=== PATIENT | male | born 1970 | race Hispanic/Latino ===

== ENCOUNTER 2019-11-18 09:33 | Emergency (ER) | payer SELFPAY ==
[~2019-11-18] VITALS: Ht 182.9 cm; Wt 90.7 kg
--- OUTSIDE RECORDS SUMMARY | 2019-11-18 09:37 | XMS REPORT | Clinical Summary ---
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 9 Active HYDROcodone-acetaminophen Take 1 tablet 120 tablet 0 (NORCO) 10-325 mg by mouth 4 0 tabletIndications: times daily. Chronic pain syndrome Active TRUVADA 200-300 mg per Take 1 tablet 30 tablet 2 0 tabletIndications: Human by mouth 0 immunodeficiency virus daily. (HIV) disease Active atazanavir (REYATAZ) 300 Take 1 30 capsule 2 0 mg capsuleIndications: capsule by 0 Human immunodeficiency mouth daily virus (HIV) disease (with breakfast). Active NORVIR 100 mg Take 1 tablet 30 tablet 2 TabIndications: Human by mouth 0 immunodeficiency virus daily. (HIV) disease 02/16/2019 Discontinued (Other) albuterol (VENTOLIN Inhale 2 3 Month 1 HFA,PROVENTIL HFA,PROAIR Puffs by Supply 8 HFA) 90 mcg/actuation mouth 4 times inhalerIndications: Mild daily as intermittent asthma needed for without complication Wheezing. 01/04/2019 Discontinued (Reorder) TRUVADA 200-300 mg per Take 1 tablet 30 tablet 6 0 tabletIndications: Human by mouth 8 immunodeficiency virus daily. (HIV) disease 01/05/2019 Discontinued (Reorder) NORVIR 100 mg Take 1 tablet 30 tablet 6 TabIndications: Human by mouth 8 immunodeficiency virus daily. (HIV) disease 12/07/2018 atazanavir (REYATAZ) 300 Take 1 30 capsule 6 0 201 mg capsuleIndications: capsule by 8 Human immunodeficiency mouth daily virus (HIV) disease (with breakfast). 11/25/2018 Discontinued (Reorder) HYDROcodone-acetaminophen Take 1 tablet 120 tablet 0 (NORCO) 10-325 mg by mouth 4 9 tabletIndications: times daily. Chronic pain syndrome 12/29/2018 Discontinued (Reorder) HYDROcodone-acetaminophen Take 1 tablet 120 tablet 0 (NORCO) 10-325 mg by mouth 4 9 tabletIndications: times daily. Chronic pain syndrome 01/26/2019 Discontinued (Reorder) HYDROcodone-acetaminophen Take 1 tablet 120 tablet 0 (NORCO) 10-325 mg by mouth 4 9 tabletIndications: times daily. Chronic pain syndrome 01/31/2019 Discontinued (Reorder) TRUVADA 200-300 mg per TAKE 1 TABLET 30 tablet 6 0 tabletIndications: Human BY MOUTH 9 immunodeficiency virus EVERY DAY (HIV) disease 02/16/2019 Discontinued (Other) RITONavir (NORVIR) 100 mg Take 1 tablet 30 tablet 3 TabIndications: Human by mouth 9 immunodeficiency virus daily. (HIV) disease 01/31/2019 Discontinued (Reorder) atazanavir (REYATAZ) 300 Take 1 30 capsule 3 0 mg capsuleIndications: capsule by 9 Human immunodeficiency mouth daily virus (HIV) disease (with breakfast). 01/31/2019 Discontinued (Reorder) NORVIR 100 mg TAKE 1 TABLET 30 tablet 6 TabIndications: Human BY MOUTH 9 immunodeficiency virus EVERY DAY (HIV) disease 02/16/2019 Discontinued (Reorder) HYDROcodone-acetaminophen Take 1 tablet 120 tablet 0 (NORCO) 10-325 mg by mouth 4 9 tabletIndications: times daily. 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 (HIV) disease 08/08/2019 Discontinued (Reorder) TRUVADA 200-300 mg per Take 1 tablet 30 tablet 6 0 tabletIndications: Human by mouth 9 immunodeficiency virus daily. (HIV) disease 08/08/2019 Discontinued (Reorder) atazanavir (REYATAZ) 300 Take 1 30 capsule 3 0 mg capsuleIndications: capsule by 9 Human immunodeficiency mouth daily virus (HIV) disease (with breakfast). 03/23/2019 Discontinued (Reorder) HYDROcodone-acetaminophen Take 1 tablet 120 tablet 0 (NORCO) 10-325 mg by mouth 4 9 tabletIndications: times daily. Chronic pain syndrome 04/27/2019 Discontinued (Reorder) HYDROcodone-acetaminophen Take 1 tablet 120 tablet 0 (NORCO) 10-325 mg by mouth 4 9 tabletIndications: times daily. Chronic pain syndrome 06/09/2019 Discontinued (Reorder) HYDROcodone-acetaminophen Take 1 tablet 120 tablet 0 (NORCO) 10-325 mg by mouth 4 9 tabletIndications: times daily. Chronic pain syndrome 07/06/2019 Discontinued (Reorder) HYDROcodone-acetaminophen Take 1 tablet 120 tablet 0 (NORCO) 10-325 mg by mouth 4 9 tabletIndications: times daily. Chronic pain syndrome 08/08/2019 Discontinued (Reorder) HYDROcodone-acetaminophen Take 1 tablet 120 tablet 0 (NORCO) 10-325 mg by mouth 4 0 tabletIndications: times daily. Chronic pain syndrome 10/17/2019 Discontinued (Reorder) NORVIR 100 mg Take 1 tablet 30 tablet 6 TabIndications: Human by mouth 0 immunodeficiency virus daily. (HIV) disease 10/17/2019 Discontinued (Reorder) TRUVADA 200-300 mg per Take 1 tablet 30 tablet 6 0 tabletIndications: Human by mouth 0 immunodeficiency virus daily. (HIV) disease 10/17/2019 Discontinued (Reorder) atazanavir (REYATAZ) 300 Take 1 30 capsule 3 0 mg capsuleIndications: capsule by 0 Human immunodeficiency mouth daily virus (HIV) disease (with breakfast). 08/15/2019 Discontinued HYDROcodone-acetaminophen Take 1 tablet 120 tablet 0 (NORCO) 10-325 mg by mouth 4 0 tabletIndications: times daily. Chronic pain syndrome 09/05/2019 Discontinued HYDROcodone-acetaminophen Take 1 tablet 120 tablet 0 (NORCO) 10-325 mg by mouth 4 0 tabletIndications: times daily. Chronic pain syndrome 10/17/2019 Discontinued (Reorder) HYDROcodone-acetaminophen Take 1 tablet 120 tablet 0 (NORCO) 10-325 mg by mouth 4 0 tabletIndications: times daily. Chronic pain syndrome 10/17/2019 Discontinued (Reorder) NORVIR 100 mg Take 1 tablet 30 tablet 3 TabIndications: Human by mouth 0 immunodeficiency virus daily. (HIV) disease 10/19/2019 Discontinued (Reorder) TRUVADA 200-300 mg per Take 1 tablet 30 tablet 3 0 tabletIndications: Human by mouth 0 immunodeficiency virus daily. (HIV) disease 10/19/2019 Discontinued (Reorder) atazanavir (REYATAZ) 300 Take 1 30 capsule 3 0 mg capsuleIndications: capsule by 0 Human immunodeficiency mouth daily virus (HIV) disease (with breakfast). 10/19/2019 Discontinued (Reorder) NORVIR 100 mg Take 1 tablet 30 tablet 3 TabIndications: Human by mouth 0 immunodeficiency virus daily. (HIV) disease Active Problems Patient Care Coordination Note 11/17/[address] Estella Veliz MD [facility] Problem Noted Date History of hepatitis C 12/17/2018 Overview: Received 12 weeks Harvoni. SVR 12 conf irmed 11/07. Pre-treatment fibrosis F3, so continued HCC screening recommen ded. Pain management contract agreement 08/09/2018 Shingles 04/14/2017 Cirrhosis 08/14/2014 Overview: By ultrasound 11/02 and low platelets. Alcohol abuse 02/13/2014 Human immunodeficiency virus (HIV) disease 3 Kyphosis 06/30/2008 Allergy to pollen 06/30/2008 Peripheral Neuropathy 06/30/2008 Asthma Heart murmur Cocaine abuse Tobacco abuse Resolved Problems Problem Noted Date Resolved Date Chronic hepatitis C without hepatic coma 03/12/2015 12/17/2018 Encounters Care Team Description Date Type Specialty Monique Jackmane R, [facility] Chronic, continuous use of opioids; Pain management contract agreement 11/18/2019 Orders Only Monique Jackmane R, [facility] Chronic, continuous use of opioids 11/04/2019 Orders Only Infectious Diseases Monique Jackmane R, [facility] Chronic, continuous use of opioids; Pain management contract agreement 10/21/2019 Orders Only Veronica Jackman, [facility] Human immunodeficiency virus (HIV) disea se 10/19/2019 Refill Marlene Nobles 10/18/2019 Clinical Case Social Work Mgt Nakul Gomez MD Human immunodeficiency virus (HIV) disea se 10/17/2019 Orders Only Infectious Diseases Nakul Gomez MD Human immunodeficiency virus (HIV) disea se 10/17/2019 Orders Only Infectious Diseases Nakul Gomez MD Chronic pain syndrome 10/17/2019 Orders Only Infectious Diseases Veronica Jackman NP Chronic, continuous use of opioids 10/07/2019 Orders Only Infectious Diseases Veronica Jackman NP Chronic, continuous use of opioids; Pain management contract agreement 09/23/2019 Orders Only Kenny Veliz MD Chronic, continuous use of opioids 09/16/2019 Orders Only Physical Medicine a nd Rehab Veronica Jackman NP Chronic, continuous use of opioids 09/09/2019 Orders Only Infectious Diseases Nkaul Gomez MD Chronic pain syndrome 09/05/2019 Refill Infectious Diseases Monique Jackmane R [facility] Chronic, continuous use of opioids; Pain management contract agreement 08/26/2019 Orders Only Kenny Veliz MD Chronic, continuous use of opioids 08/19/2019 Orders Only Physical Medicine [facility] Re[facility] Evan Rikcetts RN Chronic pain syndrome 08/15/2019 Refill Infectious Diseases Veronica Jackman [facility] Chronic, continuous use of opioids 08/12/2019 Orders Only Infectious Diseases Nakul Gomez MD Screen for STD (sexually transmitted dis ease) (Primary Dx); Human immunodeficiency virus (HIV) disease; Chronic pain syndrome; Scrofulous tuberculous abscess; Screening for tuberculosis; Need for pneumococcal vaccination 08/08/2019 Office Visit Infectious Diseases Evan Ricketts RN Chronic pain syndrome 08/08/2019 Refill Infectious Diseases Veronica Jackman NP Chronic, continuous use of opioids; Pain management contract agreement 07/29/2019 Orders Only Kenny Veliz MD Chronic, continuous use of opioids 07/22/2019 Orders Only Physical Medicine [facility] Rehab Veronica Jackman NP Chronic, continuous use of opioids 07/15/2019 Orders Only Infectious Diseases Nakul Gomez MD Chronic pain syndrome 07/06/2019 Refill Infectious Diseases Nakul Gomez MD Chronic pain syndrome 07/01/2019 Orders Only Infectious Diseases Veronica Jackman NP Chronic, continuous use of opioids; Pain management contract agreement 07/01/2019 Orders Only Kenny Veliz MD Chronic pain syndrome (Primary Dx) 06/29/2019 Office Visit Physical Medicine a nd Rehab Kenny Veliz MD Chronic, continuous use of opioids 06/24/2019 Orders Only Physical Medicine a nd Rehab Veronica Jackman NP Chronic, continuous use of opioids 06/17/2019 Orders Only Infectious Kenny Vogel MD Chronic pain syndrome 06/09/2019 Orders Only Physical Medicine a [facility] Rehab Veronica Jackman NP Chronic, continuous use of opioids (Prim sher Dx); Pain management contract agreement 06/09/2019 Orders Only Kenny Veliz MD Chronic, continuous use of opioids 05/27/2019 Orders Only Physical Medicine a nd Rehab Veronica Jackman NP Chronic, continuous use of opioids 05/20/2019 Orders Only Infectious Kenny Vogel MD Chronic, continuous use of opioids (Prim sher Dx); Pain management contract agreement 05/12/2019 Orders Only Physical Medicine a nd Rehab Kenny Veliz MD Chronic, continuous use of opioids 04/29/2019 Orders Only Physical Medicine a [facility] Rehab Kenny Veliz MD Chronic, continuous use of opioids (Prim sher Dx); Chronic pain syndrome 04/27/2019 Orders Only Physical Medicine a nd Rehab Veronica Jackman NP Chronic, continuous use of opioids 04/22/2019 Orders Only Infectious Diseases Kenny Veliz MD Chronic, continuous use of opioids 04/01/2019 Orders Only Physical Medicine a nd Rehab Veronica Jackman NP Chronic, continuous use of opioids (Prim sher Dx) 03/31/2019 Orders Only Infectious Diseases Rosenda Puga MD Current severe episode of major depressi ve disorder with psychotic features without prior episode; Insomnia, unspecified type; Other mixed anxiety disorders; H/O: substance abuse 03/24/2019 Refill Psychiatry Kenny Veliz MD Chronic pain syndrome 03/23/2019 Orders Only Physical [facility] Re[facility] Kenny Veliz MD Chronic, continuous use of opioids 03/04/2019 Orders Only Physical [facility] Re[facility] Kenny Veliz MD Chronic pain syndrome 02/16/2019 Office Visit Physical Medicine a [facility] Rehab Kenny Veliz MD Chronic, continuous use of opioids 02/04/2019 Orders Only Physical Medicine a [facility] Rehab Nakul Gomez MD Chronic active hepatitis C (Primary Dx); Human immunodeficiency virus (HIV) disease; Need for pneumococcal vaccination 01/31/2019 Office Visit Infectious Diseases Rosenda Puga MD Current severe episode of major depressi ve disorder with psychotic features without prior episode (Primary Dx); Insomnia, unspecified type; Other mixed anxiety disorders; H/O: substance abuse; Nicotine use disorder; Pain disorder 01/31/2019 Office Visit Psychiatry Kenny Veliz MD Chronic pain syndrome 01/26/2019 Refill Physical Medicine a [facility] Re[facility] Kenny Veliz MD Chronic, continuous use of opioids 01/07/2019 Orders Only Physical Medicine a [facility] Rehab Nakul oGmez MD Human immunodeficiency virus (HIV) disea se 01/05/2019 Refill Infectious Diseases Nakul Gomez MD Human immunodeficiency virus (HIV) disea se (Primary Dx) 01/05/2019 Orders Only Infectious Diseases Nakul Gomez MD Human immunodeficiency virus (HIV) disea se 01/04/2019 Refill Infectious Diseases Kenny Veliz MD Chronic pain syndrome 12/29/2018 Refill Physical Medicine [facility] Rehab Kenny Veliz MD Chronic, continuous use of opioids 12/10/2018 Orders Only Physical Medicine a [facility] Rehab Gia De La Torre RN 12/03/2018 Refill Infectious Diseases Veronica Jackman NP Chronic pain syndrome 11/25/2018 Refill Kenny Veliz MD Chronic prescription opiate use 11/19/2018 Orders Only Physical [facility] Rehab after 11/17/2018 Immunizations Name Administration Dates Next Due Influenza A (H1N1) Vac 2010, 05/11/2009 05/11/2010 Injection Influenza Vaccine 04/21/2014, 07/04/2013, 06/01/2012, 02/2009, 03/22/2010 05/01/2008, 05/25/2007 Influenza Vaccine, 04/14/2017 Seasonal, Injectable Methylpredinsone Inj 03/21/2013 PCV 13 (Pnuemococcal 12/07/2017 Conjugated 13 Valent) PPD 12/07/2017 (Deferred: Patient Refused - Unable to 03/22/2010 return for PPD Reading), 2010, , 04/13/2009 PPV 23 (Pneumococcal 08/08/2019 Polysaccharide 23 Valent) Pneumoccoccal 04/13/2009 04/13/2010 Tdap Tetanus, diphtheria, 09/19/2011 acellular pertussis Vaccine Vitamin B12 03/30/2009, 07/06/2008 Cyanocobalamin 1000mcg Inj Family History Medical History Relation Name Comments Stroke Brother Asthma Daughter Hypertension Daughter Diabetes Maternal Grandmother Arthritis Mother Relation Name Status Comments Brother Alive Brother Alive Brother Daughter Alive Daughter Alive Daughter Daughter Father Alive Maternal Grandfather Maternal Grandmother Mother Alive Paternal Grandfather Paternal Grandmother Sister Alive Sister Alive Son Alive Social History Date Tobacco Use Types Packs/Day Years Used Current Every Day Smoker Cigarettes 0.5 20 Smokeless Tobacco: Current User Tobacco Cessation: Ready to Quit: Yes; C ounseling Given: No Comments: quit in 2006, restarted early 2011 Drinks/Week oz/Week Comments Alcohol Use Yes Food Insecurity Answer Date Recorded Within the past 12 months, you worried that your Never francisco e 08/19/2018 food would run out before you got money to buy more. Within the past 12 months, the food you bought Never true 08/19/2018 just didn't last and you didn't have mo teodoro to get more. Sex Assigned at Date Recorded Not on file Industry Job Start Date Occupation Not on file Not on file Not on file Travel End Travel History Travel Start No recent travel history available. Last Filed Vital Signs Reading Time Taken Comments Vital Sign 129/76 08/08/2019 8:56 AM [facility] Blood Pressure 80 08/08/2019 8:56 AM [facility] Pulse 37.1 C (98.7 F) 08/08/2019 8:56 AM [employer]IC TREATER Temperature 20 08/08/2019 8:56 AM ANODIC TREATER Respiratory Rate - - Oxygen Saturation - - Inhaled Oxygen Concentration 88 kg (194 lb) 08/08/2019 8:56 AM [facility]IC TREATER Weight 182.9 cm (6') 08/08/2019 8:56 AM [employer] TRE[facility] Height 26.31 08/08/2019 8:56 AM [facility]IC TRE[facility] Body Mass Index Plan of Treatment Care Team Description Date Type Specialty 12/05/2019 Lab Appointment Lab Tiarra Ortiz MD [address] [place] [address] [phone] 12/15/2019 Office Visit Infectious Diseases Health Maintenance Due Date Last Done Comments Colorectal Cancer Scrn 10/01/2019 Annual (FIT/FOBT) Age 50 to 75 IMM Influenza Seasonal 03/22/2020 04/14/2017 Oct to August (>/= 19 yrs) Procedures Comments Procedure Name Priority Date/Time Associated Diag nosis COMPREHENSIVE METABOLIC Routine 07/25/2019 Human immunodeficiency PANEL 4:22 PM [facility] virus (HIV) disease HIV RNA VIRAL LOAD Routine 07/25/2019 Human immun odeficiency 4:22 PM [employer] virus (HIV) disease CBC (WITHOUT Routine 07/25/2019 Human immunodef iciency DIFFERENTIAL) 4:22 PM [employer] virus (HIV) disease URINE DRUG SCREEN Routine 07/25/2019 Chronic, con tinuous use 4:22 PM AN[facility]IC TREATER of opioids URINE DRUG SCREEN Routine 06/29/2019 Chronic, con tinuous use 3:41 PM [employer] TREATER of opioids URINE DRUG SCREEN Routine 05/12/2019 Chronic, con tinuous use 3:47 PM [employer] TREATER of opioids BILIRUBIN, DIRECT Routine 02/16/2019 Human immuno deficiency 2:45 PM CDT virus (HIV) disease CBC Routine 02/16/2019 Human immunodef iciency 2:45 PM CDT virus (HIV) disease SYPHILIS MONITOR FOR Routine 02/16/2019 Human imm unodeficiency TREATMENT 2:45 PM CDT virus (HIV) disease HIV RNA VIRAL LOAD Routine 02/16/2019 Human immun odeficiency 2:45 PM CDT virus (HIV) disease COMPREHENSIVE METABOLIC Routine 02/16/2019 Human immunodeficiency PANEL 2:45 PM CDT virus (HIV) disease CD4/CD8 RATIO GRP Routine 02/16/2019 Human immuno deficiency 2:45 PM CDT virus (HIV) disease CBC/DIFF Routine 02/16/2019 Human immunodef iciency 2:45 PM CDT virus (HIV) disease URINE DRUG SCREEN Routine 02/16/2019 Chronic, con tinuous use 2:33 PM CDT of opioids URINALYSIS Routine 02/16/2019 Human immunodef iciency 2:25 PM CDT virus (HIV) disease URINALYSIS Routine 02/16/2019 Human immunodef iciency 2:25 PM CDT virus (HIV) disease URINE DRUG SCREEN Routine 01/28/2019 Chronic, con tinuous use 12:36 PM CDT of opioids URINE DRUG SCREEN Routine 11/18/2018 Chronic pres cription 1:38 PM CDT opiate use HCV RNA QUANT, PCR Routine 11/18/2018 Chronic hep atitis C 1:37 PM CDT without hepatic coma after 11/17/2018 Results * Comprehensive Metabolic Panel (07/25/2019 4:22 PM [facility]) Only the most recent of 2 results within the time period is included. Sodium 146 (H) 136 - 145 mmol/L [facility] Potassium 4.3 3.5 - 5.1 mmol/L [facility] Chloride 107 98 - 107 mmol/L [facility] CO2 28 21 - 31 mmol/L [facility] Glucose 112 (H) 70 - 110 mg/dL [facility] Calcium 9.1 8.6 - 10.3 mg/dL [facility] Urea Nitrogen 13.0 7.0 - 25.0 mg/dL [facility] Creatinine 1.0 0.7 - 1.3 mg/dL [facility] Alkaline 91 34 - 104 U/L [facility] Phosphatase [facility] ALT 12 7 - 52 U/L [facility] AST 19 13 - 39 U/L [facility] Bilirubin, 0.9 0.2 - 1.2 mg/dL [facility] Total [facility] Total Protein 6.7 6.0 - 8.3 g/dL [facility] GFR, Estimated 79 (L) >=90 mL/min/1.73 m2 [facility] Albumin 4.3 4.2 - 5.5 g/dL [facility] Anion Gap 11 5 - 16 mmol/L [facility] Specimen Blood Performing Organization Address [facility] [place] one Number [facility] [address] [place] [address] * DRUG SCREEN, URINE (07/25/2019 4:22 PM [facility]ODIC TREATER) Only the most recent of 6 results within the time period is included. Opiate, Ur Positive (A) Negative [facility] Comment: [facility] Calibrated Standard: Morphine Positive if urine level > or = 300 ng/dL Amphetamine Negative Negative [facility] Comment: [facility] Calibrated Standard: D-Methamphetamine Positive if urine level > or = 1000 ng/mL Barbiturate Negative Negative [facility] Comment: [facility] Calibrated Standard: Secobarbital Positive if urine level is > or = 200 ng/mL Benzodiazepine Negative Negative [facility] Comment: [facility] Calibrated Standard: Lormethazepam Positive if urine level is > or = 200 ng/mL Cocaine Negative Negative [facility] Comment: [facility] Calibrated Standard: Benzoylecgonine Positive if urine level > or = 300 ng/dL PCP Negative Negative [facility] Comment: [facility] Calibrated Standard: Phencyclidine Positive if urine level > or = 25 ng/dL Cannabinoid Negative Negative [facility] Comment: [facility] Calibrated Standard: 11 nor-delta(9)-THC carboxylic acid Positive if urine level > or = 50 ng/mL Specimen Urine Performing Organization Address [facility] one Number [facility] [address] [place] [address] * HIV-1 RNA (07/25/2019 4:22 PM [facility]ODIC TREATER) Only the most recent of 2 results within the time period is included. [facility] HIV-1 RNA Detected (A) Not detected [facility] Detection [facility] HIV-1 RNA <20 (H) <=0 copies/mL [facility] Copies [facility] HIV-1 RNA Log10 <1.30 (H) <=0.00 Log10 [facility] Specimen Blood Narrative Performed At This test utilizes FDA cleared KARINA Am pliPrep/KARINA TaqMan HIV-[address] test [address] [facility] which allo ws quantitation of viral loads between 20 and 10,000,000 copies/mL of plasma. Whe n the result is positive but less than 20 copies/mL of HIV-1 RNA, the test result will be reported as detected but less than 20 copies/mL". The KARINA AmpliPrep / KARINA TaqManHIV-1 test, version 2.0 is not intended for use as a screening melissa t for the presence of HIV-1 RNA in blood or a diagnostic test to confirm the pre sence of HIV infection. This test is intended for use as an aid in the manag ement of patients with HIV-1 infection. Performing Organization Address [facility] one Number [facility] [address] [place] [address] [phone] * CBC (without differential) (07/25/2019 4:22 PM ANODIC TREATER) [facility] WBC 6.9 4.5 - 12.0 K/uL [facility] RBC 4.52 (L) 4.60 - 6.20 M/uL [facility] Hemoglobin 13.7 (L) 14.0 - 18.0 g/dL [facility] Hematocrit 42.8 40.0 - 54.0 % [facility] MCV 94.7 (H) 82.0 - 92.0 fL [facility] MCH 30.3 27.0 - 31.0 pg [facility] MCHC 32.0 32.0 - 36.0 g/dL [facility] RDW 48.3 (H) 35.1 - 43.9 fL [facility] Platelet 144 (L) 150 - 400 K/uL [facility] Mean Platelet 12.7 (H) 9.4 - 12.4 fL [facility] Volume [facility] Percent NRBC 0.0 % [facility] Specimen Blood Performing Organization Address City/State/Zipcode Ph one Number [facility] [address] [place] [address] * CBC/Diff (02/16/2019 2:45 PM CDT) WBC 6.4 4.5 - 12.0 K/uL [facility] RBC 4.55 (L) 4.60 - 6.20 M/uL [facility] Hemoglobin 13.8 (L) 14.0 - 18.0 g/dL [facility] Hematocrit 42.9 40.0 - 54.0 % [facility] MCV 94.3 (H) 82.0 - 92.0 fL [facility] MCH 30.3 27.0 - 31.0 pg [facility] MCHC 32.2 32.0 - 36.0 g/dL [facility] RDW 45.4 (H) 35.1 - 43.9 fL [facility] Platelet 176 150 - 400 K/uL [facility] Mean Platelet 12.2 9.4 - 12.4 fL [facility] Volume [facility] Percent NRBC 0.0 % [facility] Neutrophil 60.5 34.0 - 67.9 % [facility] Lymphs 29.7 21.8 - 50.0 % [facility] Monocytes 7.4 5.3 - 12.0 % [facility] Eos 1.6 0.8 - 5.0 % [facility] Basos 0.6 0.2 - 1.2 % [facility] Immature 0.2 0.0 - 0.5 % [facility] Granulocytes LAB[facility] Neutrophils 3.86 1.78 - 5.36 K/uL [facility] (Absolute) [facility] Lymphs 1.89 1.32 - 3.57 K/uL [facility] (Absolute) [facility] Monocytes(Absol 0.47 0.30 - 0.82 K/uL [facility] [place] Eos (Absolute) 0.10 0.04 - 0.54 K/uL [facility] Baso (Absolute) 0.04 0.01 - 0.08 K/uL [facility] Immature Grans 0.01 0.00 - 0.03 K/uL [facility] (Abs) [facility] Absolute NRBC 0.00 K/uL [facility] Specimen Blood Performing Organization Address [facility] one Number [facility] [address] [place] [address] [phone] * CD4/CD8 Ratio Grp (02/16/2019 2:45 PM CDT) Lymphocyte Abs 1,920 % [facility] CD4 Absolute 634 431-1,623 cells/uL [facility] CD8 Absolute 902 170-1,078 cells/uL [facility] CD4/CD8 Ratio 0.70 (L) 0.86 - 2.05 [facility] WBC 6.4 4.5 - 12.0 K/uL [facility] Lymphs 30.0 21.8 - 50.0 % [facility] CD4% 33.0 25.0 - 56.0 % [facility] CD8% 47.0 (H) 14.2 - 35.8 % [facility] Specimen Blood Performing Organization Address [facility] one Number [facility] [address] [place] [address] [phone] * Syphilis Monitor for Treatment (02/16/2019 2:45 PM CDT) Pathologist [facility] [place] RPR Non-reactive Non-reactive [facility] Specimen Blood Performing Organization Address [facility] one Number [facility] [address] [place] [address] * Bilirubin, Direct (02/16/2019 2:45 PM CDT) Direct 0.2 0.0 - 0.2 mg/dL [facility] Specimen Blood Performing Organization Address [facility] one Number [facility] [address] [place] [address] * Urinalysis (02/16/2019 2:25 PM CDT) Color Yellow Colorless, Straw, [facility] Clarity Hazy (A) Clear [facility] Spec Jackson, 1.020 1.001 - 1.035 [facility] pH, Ur 6.0 5.0 - 8.0 [facility] Protein, Ur Negative Negative mg/dL [facility] Glucose, Ur Negative Negative mg/dL [facility] Ketone, Ur Negative Negative mg/dL [facility] Bilirubin, Ur Negative Negative mg/dL [facility] Nitrite, Ur Negative Negative [facility] Leukocyte Negative Negative mg/dL [facility] Blood, Ur Negative Negative mg/dL [facility] Urobilinogen, <1.0 <1.0 EU/dL [facility] Specimen Urine Performing Organization Address [facility] one Number [facility] [address] [place] [address] [phone] * HCV RNA Quant, PCR (11/18/2018 1:37 PM CDT) HCV RNA QUANT, Not detected IU/mL [facility] MOLECULAR PCR Comment: PATHOLOGY This test utilizes FDA cleared KARINA AmpliPrep/KARINA TaqMan HCV test, v2.0 from [employer] which allows detection of viral loads between 15 copies/mL and 100,000,000 of plasma. When the result is less than 15 copies/mL of HCV RNA is obtained, the test will be reported as less than 15 copies/mL. [employer] AmpliPrep/KARINA TaqMan HCV test, v2.0 is NOT intended for use as a screening test for the presence of HCV RNA in blood or as a diagnostic test to confirm the presence of HCV infection. This test is intended for use as an aid in the management of patients with HCV infection. Specimen Blood specimen (specimen) Performing Organization Address [facility] one Number [facility]LECULAR PATHOLOGY after 11/17/2018
--- OUTSIDE RECORDS SUMMARY | 2019-11-18 09:37 | XMS REPORT ---
Author Author [facility] t Organization [facility] Address [address] [place] [address] Phone Unavailable Care Team Providers Care Setter Out Name Role Phone Diogenes Campos MD, Negro Mota PCP Gasper [employer], R Veronica Attphys Latisha Nobles Attphys Unavailable Diogenes Campos MD, Negro Mota Attphys Jose Alfredo AGUILAR, Kenny Attphys Jamarcus RN, L Shantela Attphys Unavailable Edd AGUILAR, Sara Herzog Attphys Wil ORTEGA, Gia Attphys Unavailable Problems Condition Name Condition Details Condition Category Status Onset Date Resolution Date Last Treatment Date Treating Clinician Comments Source History of hepatitis C History of hepatitis C Disease Active 2018-12-17 00:00:00 Overview: Receiv ed 12 weeks Harvoni. SVR 12 confirmed 11/07. Pre- treatment fibrosis F3, so continued HCC screening recommended. [facility] Pain management contract agreement Pain management contract agre ement Disease Active 2018-08-09 00:00:00 [facility] Shingles Shingles Disease Active 2017-04-14 00:00:00 [facility] Cirrhosis Cirrhosis Disease Active 2014-08-14 00:00:00 Overview: By ultrasound 11/02 and low platelets. [facility] Alcohol abuse Alcohol abuse Disease Active 2014-02-13 00:00:00 [facility] Human immunodeficiency virus (HIV) disease Human immun odeficiency virus (HIV) disease Disease Active 2012-09-15 00:00:00 [facility] Kyphosis Kyphosis Disease Active 2008-06-30 00:00:00 [facility] Allergy to pollen Allergy to pollen Disease Active 2008-06-30 00:00:00 [facility] Peripheral Neuropathy Peripheral Neuropathy Disease Active 200 02-20-09 00:00:00 [facility] Asthma Asthma Disease Active [facility] Heart murmur Heart murmur Disease Active [facility] Cocaine abuse Cocaine abuse Disease Active [facility] Tobacco abuse Tobacco abuse Disease Active [facility] Allergies, Adverse Reactions, Alerts This patient has no known allergies or adverse reactions. Family History Family Member Diagnosis Comments Start Date Stop Date Source Natural brother Stroke [facility] Natural daughter Asthma [facility] Natural daughter Hypertension [facility] Maternal grandmother Diabetes [facility] Natural [facility] Social History Social Habit Start Date Stop Date Quantity Comments Source History of tobacco use Cigarette Smoker [facility] Sex Assigned At [facility] Cigarettes smoked current (pack per day) - Reported 00:00:00 2019-02-16 00:00:00 [facility] Cigarette pack-years 2019-02-16 00:00:00 2019-02-16 00:00:00 [facility] Alcohol intake 2019-02-16 00:00:00 2019-02-16 00:00:00 [facility] History SDOH Food Worry 2018-08-19 00:00:00 2018-08-19 00:00:00 1 [facility] Food Scarcity 2018-08-19 00:00:00 2018-08-19 00:00:00 1 [facility] Tobacco Comment 2012-06-01 00:00:00 2012-06-01 00:00:00 quit in 2006, restarted early 2011 [facility] Smoking Status Start Date Stop Date Source Current every day smoker 2019-02-16 00:00:00 [facility] Medications Ordered Medication Name Filled Medication Name Start Date Stop Da te Current Medication? Ordering Clinician Indication Dosage Frequency Signature (SIG) Comments Components Source TRUVADA 200-300 mg per tablet 2019-10-19 00:00:00 Yes Human immunodeficiency virus (HIV) disease 1{tbl} QD Take 1 tablet by mouth daily. [facility] atazanavir (REYATAZ) 300 mg capsule 2019-10-19 00:00:00 Yes Human immunodeficiency virus (HIV) disease 300mg QD James e 1 capsule by mouth daily (with breakfast). [employer] NORVIR 100 mg Tab 2019-10-19 00:00:00 Yes Human immunodeficiency virus (HIV) disease 100mg QD Take 1 tablet by mouth daily. [employer] HYDROcodone-acetaminophen (NORCO) 10-325 mg tablet 2019-09 00:00:00 Yes Chronic pain syndrome 1{tbl} Take 1 tablet by mouth 4 cira es daily. [employer] TRUVADA 200-300 mg per tablet 2019-10-17 00:00:00 2019-10-19 00:00:00 No Human immunodeficiency virus (HIV) disease 1{tbl} QD Take 1 tablet by mouth daily. [employer] atazanavir (REYATAZ) 300 mg capsule 2019-10-17 00:00:0 0 2019-10-19 00:00:00 No Human immunodeficiency virus (HIV) disease 300mg QD Take 1 capsule by mouth daily (with breakfast). [employer] NORVIR 100 mg Tab 2019-10-17 00:00:00 2019-10-19 00:00:00 No Human immunodeficiency virus (HIV) disease 100mg QD Take 1 tablet by mout h daily. [facility] NORVIR 100 mg Tab 2019-10-17 00:00:00 2019-10-17 00:00:00 No Human immunodeficiency virus (HIV) disease 100mg QD Take 1 tablet by mout h daily. [employer] HYDROcodone-acetaminophen (NORCO) 10-325 mg tablet 2019-09-06 00:00:00 2019-10-17 00:00:00 No Chronic pain syndrome 1{tbl} Take 1 tablet by mouth 4 times daily. [facility] HYDROcodone-acetaminophen (NORCO) 10-325 mg tablet 2019-08-16 00:00:00 2019-09-05 00:00:00 No Chronic pain syndrome 1{tbl} Take 1 tablet by mouth 4 times daily. [employer] NORVIR 100 mg Tab 2019-08-08 00:00:00 2019-10-17 00:00:00 No Human immunodeficiency virus (HIV) disease 100mg QD Take 1 tablet by mout h daily. [employer] TRUVADA 200-300 mg per tablet 2019-08-08 00:00:00 2019-10-17 00:00:00 No Human immunodeficiency virus (HIV) disease 1{tbl} QD Take 1 tablet by mouth daily. [facility] atazanavir (REYATAZ) 300 mg capsule 2019-08-08 00:00:0 0 2019-10-17 00:00:00 No Human immunodeficiency virus (HIV) disease 300mg QD Take 1 capsule by mouth daily (with breakfast). [employer] HYDROcodone-acetaminophen (NORCO) 10-325 mg tablet 2019-08-08 00:00:00 2019-08-15 00:00:00 No Chronic pain syndrome 1{tbl} Take 1 tablet by mouth 4 times daily. [employer] HYDROcodone-acetaminophen (NORCO) 10-325 mg tablet 2019-07-12 00:00:00 2019-08-08 00:00:00 No Chronic pain syndrome 1{tbl} Take 1 tablet by mouth 4 times daily. [employer] HYDROcodone-acetaminophen (NORCO) 10-325 mg tablet 2019-06-09 00:00:00 2019-07-06 00:00:00 No Chronic pain syndrome 1{tbl} Take 1 tablet by mouth 4 times daily. [employer] HYDROcodone-acetaminophen (NORCO) 10-325 mg tablet 2019-04-27 00:00:00 2019-06-09 00:00:00 No Chronic pain syndrome 1{tbl} Take 1 tablet by mouth 4 times daily. [employer] HYDROcodone-acetaminophen (NORCO) 10-325 mg tablet 2019-03-23 00:00:00 2019-04-27 00:00:00 No Chronic pain syndrome 1{tbl} Take 1 tablet by mouth 4 times daily. [employer] mirtazapine (REMERON) 15 mg tablet 2019-02-26 00:00:00 Yes 15mg Take 15 mg by mouth. [facility] HYDROcodone-acetaminophen (NORCO) 10-325 mg tablet 2019-02-16 00:00:00 2019-03-23 00:00:00 No Chronic pain syndrome 1{tbl} Take 1 tablet by mouth 4 times daily. [employer] NORVIR 100 mg Tab 2019-01-31 00:00:00 2019-08-08 00:00:00 No Human immunodeficiency virus (HIV) disease 100mg QD Take 1 tablet by mout h daily. [employer] TRUVADA 200-300 mg per tablet 2019-01-31 00:00:00 2019-08-08 00:00:00 No Human immunodeficiency virus (HIV) disease 1{tbl} QD Take 1 tablet by mouth daily. [facility] atazanavir (REYATAZ) 300 mg capsule 2019-01-31 00:00:0 0 2019-08-08 00:00:00 No Human immunodeficiency virus (HIV) disease 300mg QD Take 1 capsule by mouth daily (with breakfast). [facility] mirtazapine (REMERON) 15 mg tablet 2019-01-31 00:00:00 201 02-28-28 00:00:00 No H/O: substance abuse 15mg Take 1 tablet by mouth at bed time nightly. [facility] HYDROcodone-acetaminophen (NORCO) 10-325 mg tablet 2019-01-27 00:00:00 2019-02-16 00:00:00 No Chronic pain syndrome 1{tbl} Take 1 tablet by mouth 4 times daily. [facility] NORVIR 100 mg Tab 2019-01-07 00:00:00 2019-01-31 00:00:00 No Human immunodeficiency virus (HIV) disease TAKE 1 TABLET BY MOUT H EVERY DAY [facility] RITONavir (NORVIR) 100 mg Tab 2019-01-05 00:00:00 2019-02-16 00:00:00 No Human immunodeficiency virus (HIV) disease 100mg QD Take 1 tablet by mouth daily. [facility] TRUVADA 200-300 mg per tablet 2019-01-05 00:00:00 2019-01-31 00:00:00 No Human immunodeficiency virus (HIV) disease TAKE 1 TABLET BY MOUTH EVERY DAY [facility] atazanavir (REYATAZ) 300 mg capsule 2019-01-05 00:00:0 0 2019-01-31 00:00:00 No Human immunodeficiency virus (HIV) disease 300mg QD Take 1 capsule by mouth daily (with breakfast). [facility] HYDROcodone-acetaminophen (NORCO) 10-325 mg tablet 2018-12-29 00:00:00 2019-01-26 00:00:00 No Chronic pain syndrome 1{tbl} Take 1 tablet by mouth 4 times daily. [facility] HYDROcodone-acetaminophen (NORCO) 10-325 mg tablet 2018-11-25 00:00:00 2018-12-29 00:00:00 No Chronic pain syndrome 1{tbl} Take 1 tablet by mouth 4 times daily. [facility] HYDROcodone-acetaminophen (NORCO) 10-325 mg tablet 2018-10-27 00:00:00 2018-11-25 00:00:00 No Chronic pain syndrome 1{tbl} Take 1 tablet by mouth 4 times daily. [facility] NORVIR 100 mg Tab 2017-12-07 00:00:00 2019-01-05 00:00:00 No Human immunodeficiency virus (HIV) disease 100mg QD Take 1 tablet by mout h daily. [facility] TRUVADA 200-300 mg per tablet 2017-12-07 00:00:00 2019-01-04 00:00:00 No Human immunodeficiency virus (HIV) disease 1{tbl} QD Take 1 tablet by mouth daily. [facility] atazanavir (REYATAZ) 300 mg capsule 2017-12-07 00:00:0 0 2018-12-07 23:59:00 No Human immunodeficiency virus (HIV) disease 300mg QD Take 1 capsule by mouth daily (with breakfast). [facility] albuterol (VENTOLIN HFA,PROVENTIL HFA,PROAIR HFA) 90 mcg/act uation inhaler 2017-07-21 00:00:00 2019-02-16 00:00:00 No Mild int ermittent asthma without complication 2{puff} Inhale 2 Puffs by mo uth 4 times daily as needed for Wheezing. [facility] Immunizations Ordered Immunization Name Filled Immunization Name Date Status Comments Source PPV 23 (Pneumococcal Polysaccharide 23 Valent) 2019-07 00:00:00 [facility] PCV 13 (Pnuemococcal Conjugated 13 Valent) 2017-12-07 00:0 0:00 Completed [facility] Influenza Vaccine, Seasonal, Injectable 2017-04-14 00:00:0 0 Completed [facility] Influenza Vaccine 2014-04-21 00:00:00 Completed [facility] Influenza Vaccine 2013-07-04 00:00:00 Completed [facility] Methylpredinsone Inj 2013-03-21 00:00:00 Completed [facility] Influenza Vaccine 2012-06-01 00:00:00 Completed [facility] Tdap Tetanus, diphtheria, acellular pertussis Vaccine 2011-09-19 00:00:00 Completed [facility] Influenza A (H1N1) Vac Injection 2010 00:00:00 Compl eted [facility] PPD 2010 00:00:00 Completed [facility] Influenza A (H1N1) Vac Injection 2009-05-11 00:00:00 Compl eted [facility] PPD 2009-04-17 00:00:00 Completed [facility] Pneumoccoccal 2009-04-13 00:00:00 Completed rris [facility] PPD 2009-04-13 00:00:00 Completed [facility] Influenza Vaccine 2009-03-30 00:00:00 Completed [facility] Vitamin B12 Cyanocobalamin 1000mcg Inj 2009-03-30 00:00:00 Completed [facility] Vitamin B12 Cyanocobalamin 1000mcg Inj 2008-07-06 00:00:00 Completed [facility] Influenza Vaccine 2008-05-01 00:00:00 Completed [facility] Influenza Vaccine 2007-05-25 00:00:00 Completed [facility] Vital Signs Vital Name Observation Time Observation Value Comments Source Systolic blood pressure 2019-08-08 08:56:00 129 mm[Hg] [facility] Diastolic blood pressure 2019-08-08 08:56:00 76 mm[Hg] [facility] Heart rate 2019-08-08 08:56:00 80 /min [facility] Body temperature 2019-08-08 08:56:00 37.06 Zoe [facility] Respiratory rate 2019-08-08 08:56:00 20 /min [facility] Body height 2019-08-08 08:56:[address] [facility] Body weight 2019-08-08 08:56:[address] [facility] BMI 2019-08-08 08:56:00 26.31 kg/m2 [facility] Procedures Procedure Date / Time Performed Performing Clinician [facility] e URINE DRUG SCREEN 2019-07-25 22:22:00 Veronica Jackman alth CBC (WITHOUT DIFFERENTIAL) 2019-07-25 22:22:00 Nakul Cmapos [facility] HIV RNA VIRAL LOAD 2019-07-25 22:22:00 Nakul Campos [facility] COMPREHENSIVE METABOLIC PANEL 2019-07-25 [facility]INE DRUG SCREEN 2019-06-29 21:41:00 Veronica Jackman alth URINE DRUG SCREEN 2019-05-12 21:47:00 Veronica Jackman alth CBC/DIFF 2019-02-16 19:45:00 Nakul Cam[address] [facility] CD4/CD8 RATIO GRP 2019-02-16 19:45:00 [facility] SahNakul riggs [facility]th COMPREHENSIVE METABOLIC PANEL 2019-02-16 19:45:00 [facility] HIV RNA VIRAL LOAD 2019-02-16 19:45:00 MargueriteNakul riggs ealt SYPHILIS MONITOR FOR TREATMENT 2019-02-16 19:45:00 [facility] ashley Negro [facility] CBC 2019-02-16 19:45:00 [facility] BILIRUBIN, DIRECT 2019-02-16 19:45:00 [facility] URINE DRUG SCREEN 2019-02-16 19:33:00 Veronica Jackman alth URINALYSIS 2019-02-16 19:25:00 [facility] URINALYSIS 2019-02-16 19:25:00 [facility] URINE DRUG SCREEN 2019-01-28 17:36:00 Veronica Jackman [facility]th URINE DRUG SCREEN 2018-11-18 18:38:00 Kenny Veliz [facility] HCV RNA QUANT, PCR 2018-11-18 18:37:00 Victor M Anaya [facility] Plan of Care Planned Activity Planned Date Details Comments Source Future Scheduled Test 2020-03-22 00:00:00 IMM Influenza Seas onal Mar to August (>/= 19 yrs) [code = IMM Influenza Seasonal Mar to August (>/= 19 yrs)] [facility] Future Scheduled Test 2019-10-01 00:00:00 Colorectal Cancer Scrn Annual (FIT/FOBT) Age 50 to 75 [code = Colorectal Cancer Scrn Annual (FIT/FOBT) Age 50 to 75] [facility] Encounters Start Date/Time End Date/Time Encounter Type Admission Type Attendi [facility] Care Department Encounter ID Source 2017-07-23 00:00:00 2017-07-23 00:00:00 Outpatient [facility] [id number] [facility] 2017-07-21 00:00:00 2017-07-21 00:00:00 Outpatient [facility] [id number] [facility] 2017-07-14 00:00:00 2017-07-14 00:00:00 Outpatient [facility] [id number] [facility] 2017-06-19 00:00:00 2017-06-19 00:00:00 Outpatient [facility] [id number] [facility] 2017-06-18 00:00:00 2017-06-18 00:00:00 Outpatient [facility] [id number] [facility] 2017-05-21 00:00:00 2017-05-21 00:00:00 Outpatient [facility] [id number] [facility] 2017-05-12 00:00:00 2017-05-12 00:00:00 Outpatient [facility] [id number] [facility] 2017-04-14 15:15:22 2017-04-14 15:15:22 Outpatient [facility] [id number] [facility] 2017-03-19 14:45:26 2017-03-19 14:45:26 Outpatient [facility] [id number] [facility] 2017-03-17 10:15:53 2017-03-17 10:15:53 Outpatient [facility] [id number] [facility] 2017-03-17 09:30:18 2017-03-17 09:30:18 Outpatient [facility] [id number] [facility] 2017-03-13 13:14:55 2017-03-13 13:14:55 Outpatient [facility] [id number] [facility] 2017-03-11 00:00:00 2017-03-11 00:00:00 Outpatient [facility] [id number] [facility] 2017-03-04 11:33:58 2017-03-04 11:33:58 Outpatient [facility] [id number] [facility] Results Test Description Test Time Test Comments Results Result Comments Source DRUG SCREEN, URINE 2019-07-25 20:34:00 Test Item Opiate, Ur (test code = 51150-2) Positive Negative A Calibrated Standard: Morphine Positive if urine level > or = 300 ng/dL Amphetamine (test code = 92841-4) Negative Negative Calibrated Standard: D- Methamphetamine Positive if urine level > or = 1000 ng/mL Barbiturate (test code = 36958-8) Negative Negative Calibrated Standard: Secobarbital Positive if urine level is > or = 200 ng/mL Benzodiazepine (test code = 75781-2) Negative Negative Calibrated Standard: Lormethazepam Positive if urine level is > or = 200 ng/mL Cocaine (test code = 59134-4) Negative Negative Calibrated Standard: Benzoylecgonine Positive if urine level > or = 300 ng/dL PCP (test code = 39806-8) Negative Negative C alibrated Standard: Phencyclidine Positive if urine level > or = 25 ng/dL Cannabinoid (test code = 78611-0) Negative Negative Calibrated Standard: 11 nor-delta(9)-THC carboxylic acid Positive if urine level > or = 50 ng/mL Lab Interpretation (test code = 07411-6) Abnormal [facility]
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
--- NOTE | 2019-11-18 10:31 | Diagnostic Imaging Report ---
EXAMINATION: RIBS UNILAT W/CXR INDICATION: Fall COMPARISON: None FINDINGS: LINES/TUBES:None LUNGS:The lungs are well-inflated. No focal consolidation or pulmonary edema. PLEURA:No pleural effusion or pneumothorax. MEDIASTINUM:The cardiomediastinal silhouette appears normal in size and shape. BONES/SOFT TISSUES:No acute osseous injury. ABDOMEN:No free air under the diaphragm. IMPRESSION: No displaced rib fractures. Clear lungs. Signed by: Jocy Gan MD on 11/18/2019 10:28 AM
--- NOTE | 2019-11-18 10:38 | Diagnostic Imaging Report ---
EXAMINATION: HAND 3+ VIEWS RIGHT, FOREARM RIGHT 2 VIEW, WRIST COMPLETE RIGHT INDICATION: Trauma COMPARISON: None FINDINGS: Right hand: No acute fracture or dislocation. Alignment is anatomic. No substantial degenerative change. Soft tissues appear unremarkable. Right wrist: Acute mildly displaced right distal radius fracture. Associated overlying soft tissue swelling. Forearm: No acute fracture or dislocation. Alignment is anatomic. IMPRESSION: Mildly displaced acute right distal radius fracture with overlying right wrist soft tissue swelling. Signed by: Jocy Gan MD on 11/18/2019 10:34 AM
--- NOTE | 2019-11-18 10:39 | Diagnostic Imaging Report ---
EXAMINATION: HIP LEFT 2-3 VW (+/- PELVIS) INDICATION: Fall COMPARISON: None FINDINGS: No acute fracture or dislocation. Alignment is anatomic. No substantial degenerative change. Soft tissues appear unremarkable. IMPRESSION: No acute fracture or dislocation. Signed by: Jocy Gan MD on 11/18/2019 10:36 AM
[2019-11-18] MEDS ORDERED: HYDROCODONE/APAP 10MG-325MG TAB PO ONE (11:15)
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
== END 2019-11-18 12:00 | disposition home or self-care (01) ==
LOC: ER 09:33
DX: S52.591A Other fractures of lower end of right radius, initial encounter for closed fracture (principal); V47.5XXA Car driver injured in collision with fixed or stationary object in traffic accident, initial encounter; Y92.488 Other paved roadways as the place of occurrence of the external cause; K76.9 Liver disease, unspecified; B20 Human immunodeficiency virus [HIV] disease
CPT/HCPCS: 71101; 99283

== ENCOUNTER 2020-01-08 23:25 | Emergency (ER) | payer SELFPAY ==
[~2020-01-08] VITALS: Ht 182.9 cm; Wt 90.7 kg
[2020-01-08] MEDS ORDERED: DIPHENHYDRAMINE HCL INJ 50 MG/ML VIAL IV ONE (23:30)
[2020-01-08] MEDS ORDERED: SODIUM CHLORIDE 0.9% 1000ML 1,000 ML IV ONE (23:30)
[2020-01-08] MEDS ORDERED: DIPHENHYDRAMINE HCL INJ 50 MG/ML VIAL ONE (23:44)
[2020-01-08 23:59] LABS: BASOPHILS # (AUTO) 0.1 (0.0-0.1); BASOPHILS % 0.5 % (0.0-1.0); EOSINOPHILS # (AUTO) 0.2 (0.0-0.4); EOSINOPHILS % 2.1 % (0.0-6.0); HEMATOCRIT 41.9 % (38.2-49.6); HEMOGLOBIN 13.7 g/dL (14.0-18.0); LYMPHOCYTES % 31.2 % (18.0-39.1); MEAN CORPUSCULAR HEMOGLOBIN 30.3 pg (28-32); MEAN CORPUSCULAR HGB CONC 32.7 g/dL (31-35); MEAN CORPUSCULAR VOLUME 92.7 fL (81-99); MONOCYTES # (AUTO) 0.9 (0.2-0.8); MONOCYTES % 8.9 % (4.4-11.3); NEUTROPHILS # (AUTO) 5.5 (2.1-6.9); PLATELET COUNT 136 x10e3/uL (140-360); RED BLOOD COUNT 4.52 x10e6/uL (4.3-5.7); RED CELL DISTRIBUTION WIDTH 13.1 % (11.7-14.4)
--- NOTE | 2020-01-09 00:08 | Emergency Department Note ---
History of Present Illnes History of Present Illness Chief Complaint: Neurological History of Present Illness This is a 49 year old male brought in by [facility] after taking a pill of seroquel and smoked weed at about 10pm. Patient c/o dizziness that is getting better. Patient noted to be very anxious and restless. the seroquel he took is not his and belongs to his girlfriend. states has had these symptoms when he took her seroquel in the past. Historian: Patient, Grinder Set Up Operator Universal/EMS Arrival Mode: [facility] Onset (how long ago): hour(s) (1) Location: all over Quality: dizzy, restless, cant sit still Radiation: Reports non-radiation Severity: moderate Onset quality: sudden Duration (how long): hour(s) (1) Progression: unchanged Chronicity: new Context: Reports other (smoked marijauna and took one of his girlfriend's seroquel); Denies recent illness, Denies recent surgery, Denies recent travel Relieving factors: none Exacerbating factors: none Associated symptoms: Reports denies other symptoms Treatments prior to arrival: none Past Medical/Family History Physician Review I have reviewed the patient's past medical and family history. Any updates have been documented here. Past Medical History Recent Fever: No Clinical Suspicion of Infectio: No New/Unexplained Change in Ment: No Past Medical History: Asthma, Liver Disease, HIV, Osteoarthritis Past Surgical History: None Social History Smoking Cessation: Current some day smoker Alcohol Use: Social Any Illegal Drug Use: Yes (marijauna) Family History Family history of heart diseas: No Review of Systems Review of Systems Constitutional: Reports no symptoms EENTM: Reports no symptoms Cardiovascular: Reports no symptoms Respiratory: Reports no symptoms Gastrointestinal: Reports no symptoms Genitourinary: Reports no symptoms Musculoskeletal: Reports no symptoms Integumentary: Reports no symptoms Neurological: Reports as per HPI Psychological: Reports no symptoms Endocrine: Reports no symptoms Hematological/Lymphatic: Reports no symptoms Physical Exam Related Data Allergies: Coded Allergies: No Known Allergies (Unverified , 06/24/13) Triage Vital Signs Vital Signs Date Time Temp Pulse Resp B/P (MAP) Pulse Ox O2 Delivery O2 Flow Rate FiO2 01/08/20 23:27 98.4 86 22 94/59 100 Room Air Vital signs reviewed: Yes Physical Exam CONSTITUTIONAL Constitutional: Present well-developed, Present well-nourished, Present other (anxious and cant sit still, restless) HENT HENT: Present normocephalic, Present atraumatic, Present oropharynx clear/moist, Present nose normal HENT L/R: Present left ext ear normal, Present right ext ear normal EYES Eyes: Reports PERRL, Reports conjunctivae normal NECK Neck: Present ROM normal PULMONARY Pulmonary: Present effort normal, Present breath sounds normal CARDIOVASCULAR Cardiovascular: Present regular rhythm, Present heart sounds normal, Present capillary refill normal, Present normal rate GASTROINTESTINAL Abdominal: Present soft, Present nontender, Present bowel sounds normal GENITOURINARY Genitourinary: Present exam deferred SKIN Skin: Present warm, Present dry MUSCULOSKELETAL Musculoskeletal: Present ROM normal NEUROLOGICAL Neurological: Present alert, Present oriented x 3, Present no gross motor or sensory deficits PSYCHOLOGICAL Psychological: Present mood/affect normal, Present judgement normal Results Laboratory Laboratory Laboratory Tests Test 01/08/20 23:34 White Blood Count 9.56 x10e3/uL (4.8-10.8) Red Blood Count 4.52 x10e6/uL (4.3-5.7) Hemoglobin 13.7 g/dL (14.0-18.0) Hematocrit 41.9 % (38.2-49.6) Mean Corpuscular Volume 92.7 fL (81-99) Mean Corpuscular Hemoglobin 30.3 pg (28-32) Mean Corpuscular Hemoglobin Concent 32.7 g/dL (31-35) Red Cell Distribution Width 13.1 % (11.7-14.4) Platelet Count 136 x10e3/uL (140-360) Neutrophils (%) (Auto) 57.0 % (38.7-80.0) Lymphocytes (%) (Auto) 31.2 % (18.0-39.1) Monocytes (%) (Auto) 8.9 % (4.4-11.3) Eosinophils (%) (Auto) 2.1 % (0.0-6.0) Basophils (%) (Auto) 0.5 % (0.0-1.0) Neutrophils # (Auto) 5.5 (2.1-6.9) Lymphocytes # (Auto) 3.0 (1.0-3.2) Monocytes # (Auto) 0.9 (0.2-0.8) Eosinophils # (Auto) 0.2 (0.0-0.4) Basophils # (Auto) 0.1 (0.0-0.1) Absolute Immature Granulocyte (auto 0.03 x10e3/uL (0-0.1) Sodium Level 140 mmol/L (136-145) Potassium Level 3.8 mmol/L (3.5-5.1) Chloride Level 104 mmol/L (98-107) Carbon Dioxide Level 28 mmol/L (22-29) Anion Gap 11.8 mmol/L (8-16) Blood Urea Nitrogen 15 mg/dL (7-26) Creatinine 1.08 mg/dL (0.72-1.25) Estimat Glomerular Filtration Rate > 60 ML/MIN (60-) BUN/Creatinine Ratio 14 (6-25) Glucose Level 116 mg/dL (74-118) Calcium Level 9.0 mg/dL (8.4-10.2) Total Bilirubin 0.5 mg/dL (0.2-1.2) Aspartate Amino Transf (AST/SGOT) 20 IU/L (5-34) Alanine Aminotransferase (ALT/SGPT) 14 IU/L (0-55) Alkaline Phosphatase 102 IU/L (40-150) Creatine Kinase 117 IU/L (30-200) Creatine Kinase MB 1.30 ng/mL (0-5.0) Troponin I 0.029 ng/mL (0-0.300) Total Protein 6.8 g/dL (6.5-8.1) Albumin 3.5 g/dL (3.5-5.0) Globulin 3.3 g/dL (2.3-3.5) Albumin/Globulin Ratio 1.1 (0.8-2.0) Salicylates Level < 5.0 mg/dL (0-30) Acetaminophen Level < 3.0 ug/mL (10-30) Ethyl Alcohol Level < 10.0 mg/dL (0.0-10.0) Laboratory Tests Test 01/08/20 23:34 Lab results reviewed: Yes Procedures 12 Lead ECG Interpretation ECG Interpretation : ECG: ECG 1 Van Driver: Interpreted by ED physician Date: Jan 09, 2020 Time: 23:24 Prior ECG tracings: reviewed Rhythm: sinus rhythm Rate: normal BPM: 67 QRS axis: normal ST segments normal: Yes T waves normal: Yes Other findings: no other findings Clinical Impression: normal ECG Assessment & Plan Medical Decision Making MDM pt with dizziness and restlessness after smoking marijuana and taking one of his girlfriend's seroquel cbc, cmp, ekg, ua, drug screen, cardiac enzymes, ordered to eval for myocardial infarction, electrolyte abnormality, rhabdomyolysis, 1 liter ns iv bolus ordered benadryl 25 mg iv ordered Reassessment Reassessment time: 01:16 Reassessment PT STATES DOING BETTER, HE IS STILL SLIGHTLY RESTLESS. STATES HE IS READY TO GO HOME, Date Time Temp Pulse Resp B/P (MAP) Pulse Ox O2 Delivery O2 Flow Rate FiO2 01/09/20 00:33 76 15 109/67 100 01/08/20 23:27 98.4 Room Air Assessment & Plan Final Impression: (1) Adverse effects of medication (2) Marijuana abuse Depart Disposition: HOME, SELF-CARE Last Vital Signs Date Time Temp Pulse Resp B/P (MAP) Pulse Ox O2 Delivery O2 Flow Rate FiO2 01/08/20 23:57 66 18 99/57 100 01/08/20 23:27 98.4 Room Air Home Meds No Active Prescriptions or Reported Meds Medications in the ED Sodium Chloride 1,000 ml @ 999 mls/hr Q1H1M ONCE IV Last administered on 01/08/20at 23:39; Admin Dose 999 MLS/HR; Start 01/08/20 at 23:30; Stop 01/09/20 at 00:30 Diphenhydramine HCl 25 mg NOW ONCE IV Last administered on 01/09/20at 00:01; Admin Dose 25 MG; Start 01/08/20 at 23:30; Stop 01/08/20 at 23:36; Status DC Diphenhydramine HCl 50 mg STK-MED ONCE .ROUTE ; Start 01/08/20 at 23:44; Stop 01/08/20 at 23:38; Status DC TOM DARBY MD Jan 09, 2020 00:08
[2020-01-09 00:22] LABS: ALANINE AMINOTRANSFERASE 14 IU/L (0-55); ALBUMIN 3.5 g/dL (3.5-5.0); ALBUMIN/GLOBULIN RATIO 1.1 (0.8-2.0); ALKALINE PHOSPHATASE 102 IU/L (40-150); ANION GAP 11.8 mmol/L (8-16); BLOOD UREA NITROGEN 15 mg/dL (7-26); BUN/CREATININE RATIO 14 (6-25); CARBON DIOXIDE 28 mmol/L (22-29); CHLORIDE 104 mmol/L (98-107); CREATINE KINASE 117 IU/L (30-200); CREATININE, SERUM 1.08 mg/dL (0.72-1.25); EST GLOMERULAR FILTRATION RATE > 60 ML/MIN (60-); GLUCOSE 116 mg/dL (74-118); POTASSIUM 3.8 mmol/L (3.5-5.1); SODIUM 140 mmol/L (136-145)
[2020-01-09 00:23] LABS: SALICYLATE < 5.0 mg/dL (0-30)
[2020-01-09 01:28] VITALS: BP 102/67
== END 2020-01-09 01:38 | disposition home or self-care (01) ==
LOC: ER 23:50
DX: T43.595A Adverse effect of other antipsychotics and neuroleptics, initial encounter (principal); F12.10 Cannabis abuse, uncomplicated
CPT/HCPCS: 36415; 80053; 80320; 80329 ×2; 82550; 82553; 84484; 85025; 93005; 99284; J1200; J7030

== ENCOUNTER 2021-12-05 20:32 | Emergency (ER) | payer OTHER ==
[~2021-12-05] VITALS: Ht 182.9 cm; Wt 90.7 kg
[2021-12-05] MEDS ORDERED: KETOROLAC TROMETHAMINE 60 MG/2 ML VIAL ONE (20:59)
[2021-12-05] MEDS ORDERED: KETOROLAC TROMETHAMINE 60 MG/2 ML VIAL IM ONE (21:00)
== END 2021-12-05 22:00 | disposition home or self-care (01) ==
LOC: ER 20:42
DX: M54.50 Low back pain, unspecified (principal); S60.222A Contusion of left hand, initial encounter; V43.52XA Car driver injured in collision with other type car in traffic accident, initial encounter; Y92.488 Other paved roadways as the place of occurrence of the external cause; K76.9 Liver disease, unspecified; J45.909 Unspecified asthma, uncomplicated; B20 Human immunodeficiency virus [HIV] disease; F17.210 Nicotine dependence, cigarettes, uncomplicated
CPT/HCPCS: 72100; 73130; 99283; J1885